=== PATIENT | female | born 1970 | race Caucasian/White ===

== ENCOUNTER 2018-03-20 14:00 | Emergency (ER) | payer OTHER ==
[~2018-03-20] VITALS: Ht 165.1 cm; Wt 77.1 kg
[2018-03-20 14:50] LABS: ABSOLUTE EOSINOPHILS 0.1 thou/uL (0.0-0.7); ABSOLUTE LYMPHOCYTES 1.4 thou/uL (0.8-5.3); ABSOLUTE MONOCYTES 0.3 thou/uL (0.0-1.2); BASOPHILS 1.2 %; EOSINOPHILS 1.6 %; HEMATOCRIT 34.2 % (37.0-47.0); HEMOGLOBIN 11.3 gm/dL (12.0-15.0); LYMPHOCYTES 38.2 %; MCH 26.4 pg (26.0-34.0); MONOCYTES 6.9 %; MPV 7.3 fl. (7.2-11.1); NUCLEATED RBCS 0 /100WBC; PLATELET COUNT* 320 thou/uL (150-400); POLYS 52.1 %; RBC 4.28 mil/uL (4.20-5.00); RDW-CV 17.3 % (10.5-14.5); WBC 3.8 thou/uL (4.0-11.0)
[2018-03-20 14:57] LABS: CALCIUM 7.8 mg/dL (8.5-10.1); CREATININE 0.7 mg/dL (0.6-1.3); POTASSIUM 3.5 mmol/L (3.5-5.1)
[2018-03-20 15:02] LABS: ALBUMIN 3.6 g/dL (3.4-5.0); TOTAL BILIRUBIN 0.1 mg/dL (<0.1-1.0); TOTAL PROTEIN 6.9 g/dL (6.4-8.2)
[2018-03-20 15:15] LABS: ACETAMINOPHEN < 2 ug/mL (10-30); ALCOHOL 349 mg/dL (<10); SALICYLATE < 2.8 mg/dL (2.8-20.0)
[2018-03-20 15:37] LABS: URINE BILIRUBIN NEGATIVE (Negative); URINE BLOOD NEGATIVE (Negative); URINE CLARITY CLEAR; URINE COLOR STRAW; URINE GLUCOSE-RANDOM NEGATIVE (Negative); URINE KETONES NEGATIVE (Negative); URINE NITRITE-REFLEX NEGATIVE (Negative); URINE PROTEIN NEGATIVE (Negative); URINE SPECIFIC GRAVITY <= 1.005 (1.005-1.030); URINE UROBILINOGEN 0.2 E.U./dl (0.2-1.0)
[2018-03-20 15:38] LABS: URINE LEUKOCYTES-REFLEX NEGATIVE (Negative)
[2018-03-20 15:43] LABS: AMP/METHAMP Negative (Negative); BARBITURATES Negative (Negative); BENZODIAZEPINES Negative (Negative); COCAINE Negative (Negative); METHADONE Negative (Negative); OPIATES Negative (Negative); PCP Negative (Negative); THC Negative (Negative)
[2018-03-20 23:01] VITALS: BP 100/66
== END 2018-03-20 23:10 | disposition home or self-care (01) ==
LOC: M.ERS 14:00
PROVIDERS: Family Medicine
DX: F10.129 Alcohol abuse with intoxication, unspecified (principal)

== ENCOUNTER 2018-03-27 05:36 | Emergency (ER) | payer OTHER ==
[~2018-03-27] VITALS: Ht 160 cm; Wt 68.0 kg
[2018-03-27 06:09] LABS: URINE BLOOD 3+ (Negative); URINE CLARITY CLEAR; URINE COLOR YELLOW; URINE GLUCOSE-RANDOM NEGATIVE (Negative); URINE KETONES TRACE (Negative); URINE LEUKOCYTES-REFLEX NEGATIVE (Negative); URINE NITRITE-REFLEX NEGATIVE (Negative); URINE PROTEIN 3+ (Negative); URINE SPECIFIC GRAVITY >= 1.030 (1.005-1.030)
[2018-03-27 06:11] LABS: ABSOLUTE BASOPHILS 0.1 thou/uL (0.0-0.2); ABSOLUTE LYMPHOCYTES 2.4 thou/uL (0.8-5.3); ABSOLUTE MONOCYTES 0.5 thou/uL (0.0-1.2); ABSOLUTE NEUTROPHILS 2.7 thou/uL (1.6-8.1); BASOPHILS 1.3 %; EOSINOPHILS 0.1 %; HEMATOCRIT 42.9 % (37.0-47.0); LYMPHOCYTES 43.2 %; MCHC 32.6 g/dL (28.0-37.0); MCV 79.9 fL (80.0-100.0); MONOCYTES 8.2 %; MPV 7.5 fl. (7.2-11.1); NUCLEATED RBCS 0 /100WBC; PLATELET COUNT* 355 thou/uL (150-400); POLYS 47.2 %; RBC 5.37 mil/uL (4.20-5.00); RDW-CV 17.2 % (10.5-14.5); WBC 5.6 thou/uL (4.0-11.0)
[2018-03-27 06:15] LABS: ICTOTEST (BILI CONFIRMATORY) Negative (Negative); URINE BILIRUBIN 1+ (Negative)
[2018-03-27 06:16] LABS: AMP/METHAMP Negative (Negative); BARBITURATES Negative (Negative); BENZODIAZEPINES Negative (Negative); COCAINE Negative (Negative); METHADONE Negative (Negative); OPIATES Negative (Negative); PCP Negative (Negative); THC Negative (Negative)
[2018-03-27 06:26] LABS: CASTS None Seen /LPF (None Seen); CRYSTALS None Seen /LPF (None Seen); MUCUS 4-6 Moderate strn/LPF (None Seen); SQUAMOUS 4-10 Moderate /LPF (0-3); URINE RBC 3-10 Few /HPF (0-2); URINE WBC-REFLEX 0-5 Rare /HPF (0-5)
[2018-03-27 06:50] LABS: ALBUMIN 3.8 g/dL (3.4-5.0); CALCIUM 8.4 mg/dL (8.5-10.1); CREATININE 0.9 mg/dL (0.6-1.3); POTASSIUM 3.1 mmol/L (3.5-5.1); TOTAL BILIRUBIN 0.4 mg/dL (<0.1-1.0); TOTAL PROTEIN 7.4 g/dL (6.4-8.2)
[2018-03-27 06:52] LABS: ALCOHOL 312 mg/dL (<10); SALICYLATE < 2.8 mg/dL (2.8-20.0)
[2018-03-27 06:53] LABS: ACETAMINOPHEN < 2 ug/mL (10-30)
[2018-03-27 13:14] VITALS: BP 119/79
== END 2018-03-27 13:14 | disposition home or self-care (01) ==
LOC: M.ERS 05:36
PROVIDERS: Emergency Medicine Emergency Medical Services
DX: F10.129 Alcohol abuse with intoxication, unspecified (principal); Y90.7 Blood alcohol level of 200-239 mg/100 ml; R45.851 Suicidal ideations

== ENCOUNTER 2019-02-03 14:36 | Emergency (ER) | payer OTHER ==
[~2019-02-03] VITALS: Ht 167.6 cm; Wt 74.8 kg
[2019-02-03] MEDS ORDERED: SUPER THERAVIT1 EACH PO (14:47)
[2019-02-03] MEDS ORDERED: ZOLOFT100 MG PO (14:48)
[2019-02-03] MEDS ORDERED: IRON325 M1 PO (14:48)
[2019-02-03 15:07] LABS: ABSOLUTE BASOPHILS 0.1 thou/uL (0.0-0.2); ABSOLUTE LYMPHOCYTES 0.6 thou/uL (0.8-5.3); ABSOLUTE MONOCYTES 0.4 thou/uL (0.0-1.2); BASOPHILS 1.1 %; HEMATOCRIT 38.6 % (37.0-47.0); LYMPHOCYTES 10.4 %; MCH 27.9 pg (26.0-34.0); MCHC 33.7 g/dL (28.0-37.0); MCV 82.5 fL (80.0-100.0); MONOCYTES 6.6 %; NUCLEATED RBCS 0 /100WBC; PLATELET COUNT* 279 thou/uL (150-400); POLYS 81.9 %; RBC 4.68 mil/uL (4.20-5.00); RDW-CV 18.4 % (10.5-14.5); WBC 6.1 thou/uL (4.0-11.0)
[2019-02-03 15:10] LABS: URINE BILIRUBIN NEGATIVE (Negative); URINE BLOOD 1+ (Negative); URINE CLARITY CLEAR; URINE COLOR YELLOW; URINE GLUCOSE-RANDOM NEGATIVE (Negative); URINE KETONES TRACE (Negative); URINE LEUKOCYTES-REFLEX NEGATIVE (Negative); URINE NITRITE-REFLEX NEGATIVE (Negative); URINE PROTEIN NEGATIVE (Negative); URINE SPECIFIC GRAVITY <= 1.005 (1.005-1.030); URINE UROBILINOGEN 0.2 E.U./dl (0.2-1.0)
[2019-02-03 15:15] LABS: CALCIUM 9.2 mg/dL (8.5-10.1); POTASSIUM 3.5 mmol/L (3.5-5.1)
[2019-02-03 15:25] LABS: ALBUMIN 3.7 g/dL (3.4-5.0); MAGNESIUM 1.4 mg/dL (1.8-2.4); TOTAL BILIRUBIN 0.6 mg/dL (<0.1-1.0); TOTAL PROTEIN 7.1 g/dL (6.4-8.2)
[2019-02-03 15:29] LABS: BACTERIA-REFLEX 1-9 Few /HPF (None Seen); CASTS None Seen /LPF (None Seen); CRYSTALS None Seen /LPF (None Seen); SQUAMOUS 0-3 Few /LPF (0-3); URINE RBC 0-2 Rare /HPF (0-2); URINE WBC-REFLEX 0-5 Rare /HPF (0-5)
[2019-02-03 15:32] LABS: ACETAMINOPHEN < 2 ug/mL (10-30); ALCOHOL 48 mg/dL (<10); SALICYLATE < 2.8 mg/dL (2.8-20.0)
[2019-02-03 15:32] LABS: AMP/METHAMP Negative (Negative); BARBITURATES Negative (Negative); BENZODIAZEPINES Negative (Negative); COCAINE Negative (Negative); METHADONE Negative (Negative); OPIATES Negative (Negative); PCP Negative (Negative); THC Negative (Negative)
[2019-02-03] MEDS ORDERED: ATIVAN1 M1 PO (16:51)
[2019-02-03 16:54] VITALS: BP 119/71
--- NOTE | 2019-02-05 14:12 | EKG ---
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
== END 2019-02-03 16:58 | disposition home or self-care (01) ==
LOC: M.ERS 14:36
PROVIDERS: Emergency Medicine
DX: F10.129 Alcohol abuse with intoxication, unspecified (principal); R11.2 Nausea with vomiting, unspecified

== ENCOUNTER 2019-11-29 03:33 | Inpatient (IN) | payer OTHER ==
[2019-11-28 20:00] VITALS: BP 128/80
[~2019-11-29] VITALS: Ht 170.2 cm; Wt 76.6 kg
[~2019-11-29 03:33] MED LIST: ATIVAN1 M1 PO; IRON325 M1 PO; SUPER THERAVIT1 EACH PO; ZOLOFT100 MG PO
[2019-11-29 03:40] VITALS: BP 138/98
[2019-11-29] MEDS ORDERED: ESTROGEN (03:53)
[2019-11-29] MEDS ORDERED: PEPCID20 MG PO (03:54)
[2019-11-29] MEDS ORDERED: VITAMIN B-1250 MC2 PO (03:55)
[2019-11-29 04:06] LABS: ABSOLUTE BASOPHILS 0.1 thou/uL (0.0-0.2); ABSOLUTE MONOCYTES 0.6 thou/uL (0.0-1.2); ABSOLUTE NEUTROPHILS 5.7 thou/uL (1.6-8.1); BASOPHILS 0.7 %; EOSINOPHILS 0.5 %; HEMATOCRIT 46.9 % (37.0-47.0); HEMOGLOBIN 16.2 gm/dL (12.0-15.0); LYMPHOCYTES 31.5 %; MCHC 34.7 g/dL (28.0-37.0); MCV 92.3 fL (80.0-100.0); MONOCYTES 6.8 %; NUCLEATED RBCS 0 /100WBC; PLATELET COUNT* 372 thou/uL (150-400); POLYS 60.5 %; RBC 5.07 mil/uL (4.20-5.00); RDW-CV 12.8 % (10.5-14.5); WBC 9.4 thou/uL (4.0-11.0)
[2019-11-29 04:16] LABS: CALCIUM 8.4 mg/dL (8.5-10.1); CREATININE 0.8 mg/dL (0.6-1.3); POTASSIUM 3.8 mmol/L (3.5-5.1)
[2019-11-29 04:17] LABS: PROTIME 10.4 Seconds (9.20-11.50)
[2019-11-29 04:20] LABS: MAGNESIUM 1.8 mg/dL (1.8-2.4); TOTAL BILIRUBIN 0.4 mg/dL (<0.1-1.0); TOTAL PROTEIN 7.8 g/dL (6.4-8.2)
[2019-11-29 04:29] LABS: URINE BILIRUBIN NEGATIVE (Negative); URINE BLOOD 1+ (Negative); URINE CLARITY CLEAR; URINE COLOR YELLOW; URINE GLUCOSE-RANDOM NEGATIVE (Negative); URINE KETONES NEGATIVE (Negative); URINE LEUKOCYTES-REFLEX NEGATIVE (Negative); URINE NITRITE-REFLEX NEGATIVE (Negative); URINE PROTEIN 1+ (Negative); URINE SPECIFIC GRAVITY 1.025 (1.005-1.030); URINE UROBILINOGEN 0.2 E.U./dl (0.2-1.0)
[2019-11-29 05:12] LABS: CASTS None Seen /LPF (None Seen); SQUAMOUS >10 Many /LPF (0-3)
[2019-11-29 05:13] LABS: BACTERIA-REFLEX 1-9 Few /HPF (None Seen); CRYSTALS None Seen /LPF (None Seen); MUCUS 4-6 Moderate strn/LPF (None Seen); URINE RBC 0-2 Rare /HPF (0-2); URINE WBC-REFLEX 0-5 Rare /HPF (0-5)
--- NOTE | 2019-11-29 07:59 | NUR ---
PT WALKED TO BATHROOM, AMBULATED, AND ON PHONE AT THIS TIME. CONTINUE TO MONITOR
[2019-11-29 09:30] VITALS: BP 122/67
--- NOTE | 2019-11-29 10:38 | NUR ---
TELE STATUS AT [id number]
[2019-11-29 12:57] VITALS: BP 115/74
[2019-11-29] MEDS ORDERED: HYDROXYZINE HCL25 M2 PO (14:32)
[2019-11-29] MEDS ORDERED: LAMOTRIGINE (BL25 MG PO ×2 (14:33)
--- NOTE | 2019-11-29 15:03 | NUR ---
ANDREAESEARCH SALES ADMINISTRATOR ASSESSING PT AT THIS TIME
[2019-11-29 16:51] VITALS: BP 122/81
[2019-11-29 17:21] VITALS: BP 122/81
[2019-11-29 17:50] VITALS: BP 114/80
--- NOTE | 2019-11-29 18:05 | NUR ---
PATIENT ADMITTED TO ROOM 229 FROM ER. PATIENT ALERT AND ORIENTED X 3-4. PATIENT VERY DROWSY DURING ADMISSION, NOT ABLE TO ANSWER ALL QUESTIONS OR SIGN PAPERWORK AT THIS TIME. NO APPARENT PAIN. PIPE WELDER IN PLACE. NO WOUNDS NOTED. REG DIET ORDERED. FALL RISK IN PLACE. CALL LIGHT WITHIN REACH.
[2019-11-29 18:50] LABS: CALCIUM 8.4 mg/dL (8.5-10.1); PHOSPHORUS* 2.7 mg/dL (2.5-4.9)
[2019-11-29 23:43] LABS: AMP/METHAMP Negative (Negative); BARBITURATES Negative (Negative); BENZODIAZEPINES Negative (Negative); COCAINE Negative (Negative); METHADONE Negative (Negative); OPIATES Negative (Negative); PCP Negative (Negative); THC Negative (Negative)
[2019-11-30 00:05] VITALS: BP 125/83
[2019-11-30 04:00] VITALS: BP 123/78
[2019-11-30 07:26] VITALS: BP 137/84
--- NOTE | 2019-11-30 08:13 | NUR ---
ASSUMED CARE OF PT THIS AM AROUND 0715- CODE OFFICIAL IN PLACE ORDERED, TRACING SR- PT A&O X4, REPORTS HALLUCINATIONS AT TIMES- CONT OF BOWEL AND BLADDER- SBA WITH TRANFERS FOR SAFETY- LCTA, DIMINISHED IN BASES- VSS, O2 SAT 97% ON RA- ABD SOFT/ROUND/NON-TENDER, BS X4 QUADS-LAST BM REPORTED X3-4 DAYS AGO- IV NOTED TO LEFT FA INTACT, IVF INFUSSING PRESCRIBED- NIH THIS AM NOTED TO BE 10, PRN ATIVAN GIVEN THIS AM AT 0800- SEIZURE PRECAUTIONS IN PLACE INDICATED- PT DENIES ANY C/O PAIN/DISCOMFORT AT THIS TIME- CALL LIGHT AND PERSONAL BELONGINGS WITH IN REACH- HOURLY ROUNDS IN PLACE R/T SAFETY/NEEDS- ALL NEEDS MET AT THIS TIME-WCTM
[2019-11-30 12:30] VITALS: BP 119/68
[2019-11-30 16:00] VITALS: BP 130/55
--- NOTE | 2019-11-30 17:05 | NUR ---
Pt possible to be ready to dc home tomorrow. CM to provide support services and resources prior to pt dc. Spiritual care mentioned to SW that pt presents very lonely.
[2019-11-30 19:45] VITALS: BP 120/68
[2019-12-01] VITALS: BP 126/81
[2019-12-01 04:00] VITALS: BP 108/72
--- NOTE | 2019-12-01 04:50 | NUR ---
PT SLEPT ON AND OFF THIS SHIFT. ASSESSMENT DOCUMENTED. MEDS GIVEN PER E-MAR. IV PATENT, FLUIDS INFUSING. ATIVAN AND SLEEP MEDS GIVEN PER E-JUN. PT ASKING FOR MORE MEDICATIONS TO HELP HER SLEEP. FALL PRECAUTIONS IN PLACE. WILL CONTINUE WITH PLAN OF CARE.
[2019-12-01 05:00] LABS: CALCIUM 7.9 mg/dL (8.5-10.1); CREATININE 0.8 mg/dL (0.6-1.3); MAGNESIUM 1.8 mg/dL (1.8-2.4); PHOSPHORUS* 4.6 mg/dL (2.5-4.9); POTASSIUM 3.5 mmol/L (3.5-5.1)
[2019-12-01 08:00] VITALS: BP 125/88
[2019-12-01 13:02] VITALS: BP 103/74
--- NOTE | 2019-12-01 15:30 | NUR ---
GAVE AND DISCUSSED DRUG AND ALCOHOL DEPENDENCE INFORMATION WITH PT.
[2019-12-01 16:34] VITALS: BP 108/58
--- NOTE | 2019-12-01 19:00 | NUR ---
ASSUMED PT CARE AT 0730. ASSESSMENT COMPLETED CHARTED. ABLE TO MAKE NEEDS KNOWN. UP WITH SBA TO RESTROOM. IV FLUIDS RUNNING PER EMAR. NO C/O PAIN OR DISCOMFORT. HAD EMESIS X1 ABOUT AN HOUR AFTER IRON SUPPLEMENT AND GAVE PRN ZOFRAN WITH SUCCESS. PT SLEEPING ON AND OFF THROUGHOUT THE DAY. PRN ATIVAN GIVEN FOR ANXIETY OR CIWA SYMPTOMS. WILL CONTINUE TO MONITOR.
[2019-12-02] VITALS: BP 98/60
[2019-12-02 03:54] VITALS: BP 111/78
--- NOTE | 2019-12-02 04:00 | NUR ---
PT IS ALERT AND ORIENTED. VSS. PERRLA. NO COMPLAINTS OF PAIN. PT IS IN SINUS RYTHM ON THE TELEMETRY. PT IS RESTING COMFORTABLY IN BED. REPIRATIONS ARE EVEN AND NONLABORED. WILL CONTINUE TO MONITOR PT.
[2019-12-02 08:00] VITALS: BP 106/63
[2019-12-02] MEDS ORDERED: LAMOTRIGINE (BL25 MG PO ×2 (10:15)
[2019-12-02] MEDS ORDERED: ATIVAN1 M1 PO (11:14)
--- NOTE | 2019-12-02 12:05 | NUR ---
ASSUMED PT CARE AT 0730. ASSESSMENT COMPLETED CHARTED. ABLE TO MAKE NEEDS KNOWN. UP WITH SBA R/T RECENT FALL WHILE INTOXICATED. DISCHARGE APPROVED AND WENT OVER WITH PT. NEW SCRIPTS GIVEN TO PT AND WENT OVER THEM. IV AND HEART MONITOR REMOVED. NO C/O PAIN OR DISCOMFORT, BUT HAS COMPLAINTS OF ANXIETY. PT LEFT IN WHEELCHAIR TO HER VEHICLE AT 1205. NO COMMENTS, QUESTIONS, OR CONCERNS.
== END 2019-12-02 12:05 | disposition home or self-care (01) | DRG 896 ==
LOC: M.ERS 03:33 → M.2W 05:48 → M.TBA-ER 05:48 → M.2W 17:33
PROVIDERS: Emergency Medicine; ADMIT Internal Medicine; ATTEND Internal Medicine
DX: F10.229 Alcohol dependence with intoxication, unspecified (principal); G92 Toxic encephalopathy; N39.0 Urinary tract infection, site not specified; R56.9 Unspecified convulsions; F10.239 Alcohol dependence with withdrawal, unspecified; F17.210 Nicotine dependence, cigarettes, uncomplicated; Y90.9 Presence of alcohol in blood, level not specified; Z03.818 Encounter for observation for suspected exposure to other biological agents ruled out; Z79.899 Other long term (current) drug therapy

== ENCOUNTER 2019-12-02 23:13 | Emergency (ER) | payer OTHER ==
[~2019-12-02] VITALS: Ht 167.6 cm; Wt 63.5 kg
[~2019-12-02 23:13] MED LIST changes: +ESTROGEN; +HYDROXYZINE HCL25 M2 PO; +LAMOTRIGINE (BL25 MG PO; +PEPCID20 MG PO; +VITAMIN B-1250 MC2 PO
[2019-12-02 23:35] LABS: ABSOLUTE BASOPHILS 0.1 thou/uL (0.0-0.2); ABSOLUTE EOSINOPHILS 0.1 thou/uL (0.0-0.7); ABSOLUTE LYMPHOCYTES 2.1 thou/uL (0.8-5.3); ABSOLUTE MONOCYTES 0.5 thou/uL (0.0-1.2); ABSOLUTE NEUTROPHILS 3.2 thou/uL (1.6-8.1); BASOPHILS 0.9 %; EOSINOPHILS 1.4 %; HEMATOCRIT 42.4 % (37.0-47.0); HEMOGLOBIN 14.5 gm/dL (12.0-15.0); LYMPHOCYTES 35.3 %; MCH 32.2 pg (26.0-34.0); MCHC 34.3 g/dL (28.0-37.0); MCV 93.8 fL (80.0-100.0); MPV 7.5 fl. (7.2-11.1); NUCLEATED RBCS 0 /100WBC; PLATELET COUNT* 235 thou/uL (150-400); POLYS 53.4 %; RBC 4.52 mil/uL (4.20-5.00); RDW-CV 12.6 % (10.5-14.5)
[2019-12-02 23:41] LABS: CREATININE 0.9 mg/dL (0.6-1.3); POTASSIUM 3.8 mmol/L (3.5-5.1)
[2019-12-02 23:46] LABS: ALBUMIN 3.5 g/dL (3.4-5.0); TOTAL BILIRUBIN 0.2 mg/dL (<0.1-1.0); TOTAL PROTEIN 6.7 g/dL (6.4-8.2)
[2019-12-02 23:49] LABS: ALCOHOL 267 mg/dL (<10); SALICYLATE < 2.8 mg/dL (2.8-20.0)
[2019-12-02 23:50] LABS: ACETAMINOPHEN < 2 ug/mL (10-30)
[2019-12-03 00:06] LABS: URINE BILIRUBIN NEGATIVE (Negative); URINE BLOOD NEGATIVE (Negative); URINE CLARITY CLEAR; URINE COLOR YELLOW; URINE GLUCOSE-RANDOM NEGATIVE (Negative); URINE KETONES NEGATIVE (Negative); URINE LEUKOCYTES-REFLEX NEGATIVE (Negative); URINE NITRITE-REFLEX NEGATIVE (Negative); URINE PROTEIN NEGATIVE (Negative); URINE SPECIFIC GRAVITY <= 1.005 (1.005-1.030); URINE UROBILINOGEN 0.2 E.U./dl (0.2-1.0)
[2019-12-03 00:14] LABS: AMP/METHAMP Negative (Negative); BARBITURATES Negative (Negative); BENZODIAZEPINES Negative (Negative); COCAINE Negative (Negative); METHADONE Negative (Negative); OPIATES Negative (Negative); PCP Negative (Negative); THC Negative (Negative)
[2019-12-03 05:39] VITALS: BP 114/61
== END 2019-12-03 05:39 | disposition home or self-care (01) ==
LOC: M.ERS 23:13
PROVIDERS: Family Medicine
DX: F10.129 Alcohol abuse with intoxication, unspecified (principal); Y90.8 Blood alcohol level of 240 mg/100 ml or more

== ENCOUNTER 2019-12-05 16:13 | Emergency (ER) | payer OTHER ==
[~2019-12-05] VITALS: Ht 180.3 cm; Wt 79.8 kg
[2019-12-05 16:53] LABS: ABSOLUTE LYMPHOCYTES 1.7 thou/uL (0.8-5.3); ABSOLUTE MONOCYTES 0.3 thou/uL (0.0-1.2); ABSOLUTE NEUTROPHILS 3.2 thou/uL (1.6-8.1); BASOPHILS 0.9 %; EOSINOPHILS 0.2 %; HEMOGLOBIN 14.5 gm/dL (12.0-15.0); LYMPHOCYTES 32.9 %; MCH 32.1 pg (26.0-34.0); MCHC 34.4 g/dL (28.0-37.0); MCV 93.3 fL (80.0-100.0); MPV 7.1 fl. (7.2-11.1); NUCLEATED RBCS 0 /100WBC; PLATELET COUNT* 258 thou/uL (150-400); RBC 4.51 mil/uL (4.20-5.00); RDW-CV 12.6 % (10.5-14.5); WBC 5.2 thou/uL (4.0-11.0)
[2019-12-05 17:03] LABS: CALCIUM 7.4 mg/dL (8.5-10.1); CREATININE 0.7 mg/dL (0.6-1.3); POTASSIUM 3.5 mmol/L (3.5-5.1)
[2019-12-05 17:13] LABS: ALBUMIN 3.6 g/dL (3.4-5.0); MAGNESIUM 1.7 mg/dL (1.8-2.4); TOTAL BILIRUBIN 0.3 mg/dL (<0.1-1.0); TOTAL PROTEIN 6.9 g/dL (6.4-8.2)
[2019-12-05 22:28] VITALS: BP 106/58
--- NOTE | 2019-12-06 09:40 | EKG ---
[place] [address] ELECTROCARDIOGRAM REPORT Name: BOOKEREMMANUELLE Room: 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1970 Requested By: Tutu Bourne Order Number: [id number] MD: Abdi Garcia Measurements Intervals [place] Rate: 103 P: 77 [place]: 162 QRS: 69 QRSD: 78 T: 61 QT: 339 QTc: 444 Interpretive Statements Sinus tachycardia Baseline wander in lead(s) V6 Compared to ECG 02/03/2019 15:06:17 Sinus rhythm no longer present Prolonged QT interval no longer present Electronically Signed On 12-06-2019 9:40:32 CDT by Abdi Garcia [email or web address] <ELECTRONICALLY SIGNED> By: Abdi Garcia MD, FAC 12/06/19 0940 1650 1650 Abdi Garcia MD, [facility] /EPI
== END 2019-12-05 22:29 | disposition home or self-care (01) ==
LOC: M.ERS 16:13
PROVIDERS: Emergency Medicine Emergency Medical Services
DX: F10.129 Alcohol abuse with intoxication, unspecified (principal); Y90.8 Blood alcohol level of 240 mg/100 ml or more